=== PATIENT | male | born 1990 | race African-American/Black ===

== ENCOUNTER 2024-03-19 05:12 | Emergency (ER) | payer OTHER ==
[~2024-03-19] VITALS: Ht 180.3 cm; Wt 127.0 kg
[2024-03-19] MEDS ORDERED: ONDA4TAB5 PO ×2 (06:12→08:06)
[2024-03-19] MEDS: ONDANSETRON 4 MG TAB.RAPDIS PO ONE (06:20)
[2024-03-19 07:24] LABS: ALBUMIN 3.4 g/dL (3.4-5.0); BILIRUBIN,TOTAL 0.5 mg/dL (0.2-1.0); CALCIUM, SERUM 8.7 mg/dL (8.5-10.1); CREATININE 0.8 mg/dL (0.6-1.3); POTASSIUM 3.2 mmol/L (3.5-5.1); TOTAL PROTEIN, SERUM 9.2 g/dL (6.4-8.2)
[2024-03-19 07:43] LABS: BASOPHILS % (AUTO) 0.2 % (0.0-2.0); HEMATOCRIT 48 % (39-51); HEMOGLOBIN 15.7 g/dL (13.5-17.5); LYMPHOCYTES # (AUTO) 1.2 K/uL (0.8-4.8); LYMPHOCYTES % (AUTO) 10.1 % (20.0-44.0); MEAN CORPUSCULAR HEMOGLOBIN 27 PG (26.0-33.0); MEAN CORPUSCULAR HGB CONC 33 g/dl (31.0-36.0); MEAN CORPUSCULAR VOLUME 82 fL (80-96); MONOCYTES # (AUTO) 1.4 K/uL (0.1-1.30); MONOCYTES % (AUTO) 11.7 % (2.0-12.0); NEUTROPHILS # (AUTO) 9.6 K/uL (1.8-8.9); PLATELET COUNT (AUTO) 286 K/uL (150-450); RED CELL DISTRIBUTION WIDTH 12.8 % (11.5-15.0); WHITE BLOOD COUNT (AUTO) 12.3 K/uL (4.3-11.0)
[2024-03-19 08:00] VITALS: BP 140/86; TEMP 98
[2024-03-19 08:11] VITALS: O2SAT 99
== END 2024-03-19 08:14 | disposition home or self-care (01) ==
LOC: ER 05:15
DX: R11.10 Vomiting, unspecified (principal); Z59.00 Homelessness unspecified
CPT/HCPCS: 36415; 80053-TC; 85025-TC